=== PATIENT | male | born 1990 | race Caucasian/White ===

== ENCOUNTER 2020-01-29 06:07 | Emergency (ER) | payer OTHER, SELFPAY ==
[2020-01-29 06:10] VITALS: BP 143/92; PULSE 96; RESP 18; TEMP 36.6; O2SAT 99
--- NOTE | 2020-01-29 06:27 | ED.GENADULT ---
HPI - General Adult General Chief complaint: Abdominal Pain Stated complaint: Bad stomach pain in the middle of belly 20 min Time Seen by Provider: 01/29/20 06:10 Source: patient Mode of arrival: Ambulatory Limitations: no limitations History of Present Illness HPI narrative: 29-year-old male with a history of lupus here for evaluation of epigastric abdominal pain. Patient states that it started approximately 45 minutes ago as he was getting ready for work. He states he was bending over feeding his CT when the pain started. He states was a cramping like sensation. It lasted for approximately 20 minutes and then has completely resolved. No nausea or vomiting. No urinary symptoms. No prior abdominal surgeries. Did not try anything for symptoms prior to arrival Related Data Previous Rx's Medication Instructions Recorded metronidazole 1 % topical gel 1 applictn TOP DAILY #60 gram 08/04/18 Allergies Allergy/AdvReac Type Severity Reaction Status Date / Time No Known Drug Allergies Allergy Verified 08/04/18 13:53 Review of Systems Constitutional Constitutional: Denies fever(s) Cardiovascular Cardiovascular: Denies chest pain and Denies dyspnea Respiratory Respiratory: Denies dyspnea Gastrointestinal Gastrointestinal: Reports abdominal pain, Denies change in bowel habits, Denies nausea and Denies vomiting Genitourinary Genitourinary: Denies dysuria Genitourinary: Denies dysuria Musculoskeletal Musculoskeletal: Denies arthralgias and Denies myalgias Integumentary/Breasts Skin/Breast: Denies lesions and Denies rash Neurologic Neurologic: Denies behavioral changes Psychiatric Psychiatric: Denies behavioral changes Hematologic/Lymphatic Hematologic/Lymphatic: Denies easy bleeding and Denies easy bruising Patient History Medical History Lupus Social History Smoking Status: Never smoker Smoking Status: Never smoker alcohol intake frequency: a few times a month Substance Use Type: does not use Exam Initial Vital Signs Initial Vital Signs: Vital Signs Temperature 98 F 01/29/20 06:10 Pulse Rate 96 H 01/29/20 06:10 Respiratory Rate 18 01/29/20 06:10 Blood Pressure 143/92 H 01/29/20 06:10 Pulse Oximetry 99 01/29/20 06:10 Const General: cooperative, comfortable and well developed Limitations: mental status not altered HENMT Head: normal to inspection and normocephalic Resp Effort & Inspection: normal respiratory effort Cardio Rate: regular rate GI Inspection: non-distended Palpation: soft, No firm, No guarding and No tender Neuro General: patient alert, patient awake and patient oriented x3 Cognition: normal cognition Speech: speech normal Extrem General: normal to inspection and capillary refill normal Course Vital Signs Vital signs: Vital Signs - 8 hr 01/29/20 06:10 Temperature 98 F Pulse Rate 96 H Respiratory Rate 18 Blood Pressure 143/92 H Pulse Oximetry 99 Medical Decision Making MDM Narrative Medical decision making narrative: Asymptomatic upon arrival. No fevers. No abdominal pain on palpation. Low suspicion for an acute intra-abdominal surgical issue. Informed the patient that if his symptoms were to return or if they were so seated with anything more that he should return to the emergency department. Feel we can hold on radiologic studies or labs for now given the fact that he is now symptom free. Patient expressed understanding and agreement. Discharge Plan Departure Patient Disposition: Home Clinical Impression: Abdominal pain Qualifiers: Abdominal location: epigastric Qualified Code(s): R10.13 - Epigastric pain Instructions: DI for Abdominal Pain-Adult Activity Restrictions/Additional Instructions: I do recommend that you contact the number on the cart that you were given to help you establish a primary provider. It is important for you to establish care with someone given your diagnosis of lupus. As far as your abdominal pain goes return to the emergency department if the symptoms worsen or change redeveloped fevers. Prescriptions: No Action metronidazole [Metrogel] 1 % gel 1 applictn TOP DAILY Qty: 60 RF: 0
== END 2020-01-29 06:36 | disposition home or self-care (01) ==
LOC: ED 06:29
PROVIDERS: Emergency Provider Emergency Medicine
DX: R10.13 Epigastric pain (principal); M32.9 Systemic lupus erythematosus, unspecified
CPT/HCPCS: 99281

== ENCOUNTER → 2021-02-28 10:04 | Outpatient (CLI) | payer OTHER, SELFPAY ==
[2021-02-28 10:40] LABS: COVID19 -Nasal RAPID POSITIVE (Negative)
== END ==
PROVIDERS: Visit Provider Nurse Practitioner Family
DX: U07.1 COVID-19 (principal); Z20.822 Contact with and (suspected) exposure to COVID-19
CPT/HCPCS: 87635